=== PATIENT | male | born 1980 | race Caucasian/White ===

== ENCOUNTER → 2019-05-01 | Outpatient (CLI) | payer BC | END | disposition home or self-care (01) | LOC: LAB 16:27 → LAB SHORT 16:27 | DX: J02.9 Acute pharyngitis, unspecified (principal) | CPT/HCPCS: 87081; 87147 ==

== ENCOUNTER 2021-03-05 11:01 | Emergency (ER) | payer OTHER ==
[~2021-03-05] VITALS: Ht 180.3 cm; Wt 93.0 kg
[2021-03-05 11:51] LABS: Source, Urine Clean Catch
[2021-03-05 11:56] LABS: Appearance, Urine Clear (Clear); Bilirubin, Urine Neg (Neg); Blood, Urine 1+ (Neg); Color, Urine Yellow (P-Yellow); Glucose Qualitative, Urine Neg (Neg); Ketones, Urine Neg (Neg); Leukocyte Esterase, Urine Neg (Neg); Nitrite, Urine Neg (Neg); Protein, Urine Neg (Neg); Specific Gravity, Urine 1.025 (1.003-1.022); Urobilinogen, Urine NORM (Normal)
[2021-03-05 11:57] LABS: BASOPHILS PERCENT AUTO 1 % (0-2); EOSINOPHILS PERCENT AUTO 3 % (0-6); Hematocrit 45.3 % (37.0-53.0); Hemoglobin 15.4 g/dL (13.5-17.5); IMMATURE GRAN ABSOLUTE AUTO 0.06 K/mm3 (0.00-0.10); IMMATURE GRAN PERCENT AUTO 1 % (0-1); LYMPHOCYTES ABSOLUTE AUTO 4.65 K/mm3 (0.84-5.20); LYMPHOCYTES PERCENT AUTO 36 % (21-46); MONOCYTES ABSOLUTE AUTO 1.16 K/mm3 (0.16-1.47); MONOCYTES PERCENT AUTO 9 % (4-13); Mean Corpuscular Volume 88 fL (80-100); Mean Platelet Volume 9.4 fL (9.1-12.4); NEUTROPHILS ABSOLUTE AUTO 6.66 K/mm3 (1.96-9.15); NEUTROPHILS PERCENT AUTO 51 % (41-73); Platelet Count 466 K/mm3 (150-400); RDW Coefficient Variation 13.8 % (11.7-14.2); RDW Standard Deviation 44.5 fL (35.1-46.3); Red Blood Cell Count 5.13 M/mm3 (4.30-5.90); White Blood Cell Count 13.03 K/mm3 (4.00-11.30)
[2021-03-05] MEDS ORDERED: ONDA4ODT MM (12:03)
[2021-03-05] MEDS ORDERED: Norco 5-325 Ta1 EACH PO (12:03)
[2021-03-05] MEDS ORDERED: Flomax0.4 MG PO (12:04)
[2021-03-05 12:16] LABS: Alanine Aminotransfer (ALT/SGP 48 U/L (12-78); Albumin, Blood 3.8 g/dL (3.4-5.0); Albumin/Globulin Ratio 0.9 (0.8-1.8); Alk Phos 98 U/L (50-136); Anion Gap 6 mmol/L (6-16); Aspartate Aminotrans (AST/SGOT 19 U/L (12-37); Bilirubin, Total 0.5 mg/dL (0.1-1.0); Blood Urea Nitrogen 25 mg/dL (8-24); Bun/Creatinine Ratio 26.7 (12.0-20.0); CO2, Blood 27 mmol/L (21-32); Chloride, Blood 105 mmol/L (98-108); Creatinine, Blood 0.94 mg/dL (0.60-1.20); Globulin, Blood 4.2 g/dL (2.2-4.0); Glomerular Filtration Rate >60 (60-); Glucose, Blood 119 mg/dL (70-99); Potassium, Blood 3.7 mmol/L (3.5-5.5); Sodium, Blood 138 mmol/L (136-145)
[2021-03-05 12:45] LABS: Mucus Mod (0-Heavy); White Blood Cells, Urine Not Seen /hpf (0-5)
[2021-03-05 12:46] LABS: Red Blood Cells, Urine 0-2 /hpf (0-2); Squamous Epithelial Cells Rare /hpf (Few)
[2021-03-05 12:47] LABS: Bacteria Few /hpf
== END 2021-03-05 12:17 | disposition home or self-care (01) ==
LOC: ER 11:01
PROVIDERS: Physician Assistant
DX: N13.2 Hydronephrosis with renal and ureteral calculous obstruction (principal); Z88.0 Allergy status to penicillin; Z79.899 Other long term (current) drug therapy
CPT/HCPCS: 36415; 74176; 80053; 81001; 83690; 85025; 96374; 99284-25; J1885

== ENCOUNTER → 2021-10-02 | Outpatient (CLI) | payer OTHER ==
[~2021-10-02] MED LIST: Flomax0.4 MG PO; Norco 5-325 Ta1 EACH PO; ONDA4ODT MM
== END | disposition home or self-care (01) ==
LOC: LAB SHORT 11:59
DX: L85.8 Other specified epidermal thickening (principal); L98.8 Other specified disorders of the skin and subcutaneous tissue
CPT/HCPCS: 88305; 88312

== ENCOUNTER → 2025-08-14 | Outpatient (CLI) | payer OTHER ==
[2025-08-14 21:28] LABS: Creatinine, Urine Random 155.0 mg/dL (27.00-270.00); Microalb/Creat Ratio UR, Rand 4.297 mg/g (0.000-30.000); Microalbumin, Random Urine 6.66 mg/L (0.000-20.000)
== END ==
LOC: LAB 10:55 → LAB SHORT 10:55
PROVIDERS: Family Medicine
DX: I10 Essential (primary) hypertension (principal)
CPT/HCPCS: 82043; 82570